=== PATIENT | male | born 1980 | race Hispanic/Latino ===

== ENCOUNTER 2021-01-27 07:04 | Day surgery (SDC) | payer SELFPAY ==
[~2021-01-27] VITALS: Ht 172.7 cm; Wt 99.8 kg
[~2021-01-27 07:04] MED LIST: LIPITOR20 M1 PO
[2021-01-27 09:38] VITALS: BP 116/76
== END 2021-01-27 09:50 | disposition home or self-care (01) | DRG 951 ==
LOC: ENDO 07:04 → ORM 11:00 → ENDO 11:00
PROVIDERS: ATTEND Surgery
PROC: 0DJD8ZZ Inspection of Lower Intestinal Tract, Via Natural or Artificial Opening Endoscopic (ICD-10-PCS; principal; 2021-01-27)
DX: Z12.11 Encounter for screening for malignant neoplasm of colon (principal); K64.8 Other hemorrhoids; Z80.0 Family history of malignant neoplasm of digestive organs; Z86.010 Personal history of colon polyps

== ENCOUNTER 2024-04-15 08:39 | Emergency (ER) | payer OTHER ==
[~2024-04-15] VITALS: Ht 172.7 cm; Wt 94.8 kg
[~2024-04-15 08:39] MED LIST changes: +DOXYCYCL HYC100 M4 PO
[2024-04-15 08:51] VITALS: BP 117/68
[2024-04-15 09:01] VITALS: BP 117/69
[2024-04-15 09:15] VITALS: BP 111/61
[2024-04-15 09:31] VITALS: BP 123/59
[2024-04-15 09:45] VITALS: BP 113/70
[2024-04-15 10:01] VITALS: BP 134/65
== END 2024-04-15 10:17 | disposition home or self-care (01) | DRG 558 ==
LOC: ED 08:39
DX: M70.41 Prepatellar bursitis, right knee (principal)